=== PATIENT | female | born 1990 | race Caucasian/White ===

== ENCOUNTER 2017-06-18 12:05 | Emergency (ER) | payer SELFPAY ==
[2017-06-18] MEDS ORDERED: Sodium Chloride 0.9% 10 ML Syringe FLUSH PRN (12:12)
[2017-06-18] MEDS ORDERED: Ondansetron 4 MG/2 ML SDV IVPUSH ONE (12:13)
[2017-06-18] MEDS: Sodium Chloride 0.9% 1,000 ML IV ONE ×2 (12:22→13:56)
--- NOTE | 2017-06-18 12:24 | EDM.PDOC ---
ED HPI GENERAL MEDICAL PROBLEM - General Chief Complaint: Head Injury Stated Complaint: HEAD PAIN Time Seen by Provider: 06/18/17 12:06 Source of Information: Reports: Patient, Family, RN, RN Notes Reviewed History Limitations: Reports: No Limitations - History of Present Illness INITIAL COMMENTS - FREE TEXT/NARRATIVE: Patient presents to the emergency room at [place] complaining of a head injury that occurred sometime last evening. The patient does not remember what time the injury occurred. The patient does not remember the fall. The patient states that she didn't lose consciousness but does not know how long. This was an unwitnessed fall. According to the patient's friends, the patient apparently slipped and fell walking down steps, falling backward and hitting her head on the posterior right occipital region. The patient landed on solid concrete. The patient states she feels drowsy. The patient did consume alcohol last evening. The patient complains of nausea but no vomiting. The patient states that she has noticed blood in her right ear canal. The patient denies any visual field disturbances. The patient states that she is light sensitive since the injury. The patient has some left-sided neck pain. The patient denies any other painful areas. No low back pain. The patient denies any trouble with urination or bowel movements. The patient denies any numbness tingling or paresthesia in any extremity. Onset Date: 06/17/17 Duration: Getting Worse Location: Reports: Head Quality: Reports: Throbbing Severity: Moderate Improves with: Reports: None Worsens with: Reports: Movement Context: Reports: Trauma Associated Symptoms: Reports: Nausea/Vomiting Treatments DESIGNER ARCHITECT: Reports: Other (see below) (None) Head Pain Score (Numeric/FACES): 4 - Related Data Allergies Allergy/AdvReac Type Severity Reaction Status Date / Time No Known Allergies Allergy Verified 06/18/17 12:45 Home Meds: Home Meds . [No Known Home Meds] 06/18/17 [History] ED ROS GENERAL - Review of Systems Review Of Systems: See Below Constitutional: Denies: Fever, Chills, Weakness HEENT: Reports: Ear Discharge, Ear Pain. Denies: Vision Change Respiratory: Denies: Shortness of Breath, Cough Cardiovascular: Denies: Chest Pain, Palpitations GI/Abdominal: Reports: Nausea. Denies: Abdominal Pain, Vomiting Musculoskeletal: Reports: Neck Pain, Muscle Pain Skin: Reports: No Symptoms Neurological: Reports: Dizziness, Headache. Denies: Numbness, Paresthesia, Tingling ED EXAM, HEAD INJURY - Physical Exam Exam: See Below Exam Limited By: No Limitations General Appearance: Alert, No Apparent Distress, Thin Head: Scalp Abrasions (Right Occipital), Scalp Tenderness Nexus Criteria: Altered Level of Consciousness. No: Posterior, Midline Cervical Tenderness, Focal Neurological Deficit Eyes: Bilateral Eye: EOMI, Normal Inspection, PERRL Ears: Normal TMs, Auricular Tenderness, Canal Blood Nose: Normal Inspection, Normal Mucousa, No Blood Throat/Mouth: Normal Inspection, Normal Oropharynx, No Airway Compromise Neck: Full Range of Motion, Paraspinous Muscle Tender Respiratory: No Respiratory Distress, Lungs Clear, Normal Breath Sounds Cardiovascular: Regular Rate, Rhythm Extremities: Normal Inspection, Normal Range of Motion Neurologic: Alert, Oriented x 3 Skin: Normal Color, Warm/Dry - Chuck Coma Score Best Eye Response ([place]): (4) Open Spontaneously Best Verbal Response ([place]): (5) Oriented Best Motor Response (Chuck): (6) Obeys Commands Chuck Total: 15 Course - Vital Signs Last Recorded V/S: Last Vital Signs Temp 35.2 C 06/18/17 12:45 Pulse 64 06/18/17 12:45 Resp 24 H 06/18/17 12:45 BP 131/80 06/18/17 12:45 Pulse Ox 96 06/18/17 12:45 - Orders/Labs/Meds Orders: Active Orders 24 hr Category Date Time Status Cervical Spine wo Cont [CT] Stat Exams 06/18/17 12:11 Taken Head wo Cont [CT] Stat Exams 06/18/17 12:11 Taken CARBOXY-THC BY GC/MS Stat Lab 06/18/17 13:00 Received Sodium Chloride 0.9% [Saline Flush] Med 06/18/17 12:12 Active 10 ml FLUSH ASDIRECTED PRN Peripheral IV Insertion Adult [OM.PC] Routine Oth 06/18/17 12:12 Ordered Medication Orders Sodium Chloride (Saline Flush) 10 ml FLUSH ASDIRECTED PRN PRN Reason: Keep Vein Open Labs: Laboratory Tests 06/18/17 06/18/17 06/18/17 Range/Units 12:29 12:29 13:00 WBC 16.5 H (4.0-10.0) x10^3/uL RBC 4.30 (4.00-5.50) x10^6/uL Hgb 14.7 (12.0-16.0) g/dL Hct 41.9 (33.0-47.0) % MCV 97.4 H (78.0-93.0) fL MCH 34.2 H (26.0-32.0) pg MCHC 35.1 (32.0-36.0) g/dL RDW Coeff of Abbi 11.5 (10.0-15.0) % Plt Count 328 (130-400) x10^3/uL Neut % (Auto) 88.9 H (50.0-80.0) % Lymph % (Auto) 5.8 L (25.0-50.0) % [place] % (Auto) 5.2 (2.0-11.0) % Eos % (Auto) 0.0 (0.0-4.0) % Baso % (Auto) 0.1 L (0.2-1.2) % Sodium 141 (136-145) mmol/L Potassium 3.6 (3.5-5.1) mmol/L Chloride 104 (98-107) mmol/L Carbon Dioxide 26 (21-32) mmol/L BUN 6 L (7-18) mg/dL Creatinine 0.8 (0.55-1.02) mg/dL Est Cr Clr Drug Dosing TNP Estimated GFR (MDRD) > 60 Glucose 120 H (74-106) mg/dL Calcium 8.8 (8.5-10.1) mg/dL Creatine Kinase 148 (26-192) U/L Urine Color (YELLOW) Urine Appearance (CLEAR) Urine pH (5.0-8.0) Ur Specific Wolf Urine Protein (NEGATIVE) mg/dL Urine Glucose (UA) (NEGATIVE) mg/dL Urine Ketones (NEGATIVE) mg/dL Urine Occult Blood (NEGATIVE) Urine Nitrite (NEGATIVE) Urine Bilirubin (NEGATIVE) Urine Urobilinogen (0.2) EU/dL Ur Leukocyte Esterase (NEGATIVE) Urine RBC (NOT SEEN) /HPF Urine WBC (NOT SEEN) /HPF Ur Squamous Epith Cells (NEGATIVE) /HPF Urine Bacteria (NEGATIVE) /HPF Urine Mucus (NEGATIVE) /LPF Urine Opiates Screen Negative (NEGATIVE) Ur Buprenorphine Scrn Negative (NEGATIVE) Ur Oxycodone Screen Negative (NEGATIVE) Urine Methadone Screen Negative (NEGATIVE) Ur Barbiturates Screen Negative (NEGATIVE) Ur Tricyclics Screen Negative (NEGATIVE) Ur Amphetamine Screen Negative (NEGATIVE) U Methamphetamines Scrn Negative (NEGATIVE) Urine MDMA Screen Negative (NEGATIVE) U Benzodiazepines Scrn Negative (NEGATIVE) U Cocaine Metab Screen Negative (NEGATIVE) U Marijuana (THC) Screen Positive H (NEGATIVE) Ethyl Alcohol 62 H (0-3) mg/dL 06/18/17 Range/Units 13:00 WBC (4.0-10.0) x10^3/uL RBC (4.00-5.50) x10^6/uL Hgb (12.0-16.0) g/dL Hct (33.0-47.0) % MCV (78.0-93.0) fL MCH (26.0-32.0) pg MCHC (32.0-36.0) g/dL RDW Coeff of Abbi (10.0-15.0) % Plt Count (130-400) x10^3/uL Neut % (Auto) (50.0-80.0) % Lymph % (Auto) (25.0-50.0) % [place] % (Auto) (2.0-11.0) % Eos % (Auto) (0.0-4.0) % Baso % (Auto) (0.2-1.2) % Sodium (136-145) mmol/L Potassium (3.5-5.1) mmol/L Chloride (98-107) mmol/L Carbon Dioxide (21-32) mmol/L BUN (7-18) mg/dL Creatinine (0.55-1.02) mg/dL Est Cr Clr Drug Dosing Estimated GFR (MDRD) Glucose (74-106) mg/dL Calcium (8.5-10.1) mg/dL Creatine Kinase (26-192) U/L Urine Color Yellow (YELLOW) Urine Appearance Cloudy H (CLEAR) Urine pH 6.0 (5.0-8.0) Ur Specific Wolf 1.020 Urine Protein Negative (NEGATIVE) mg/dL Urine Glucose (UA) Negative (NEGATIVE) mg/dL Urine Ketones Negative (NEGATIVE) mg/dL Urine Occult Blood Negative (NEGATIVE) Urine Nitrite Negative (NEGATIVE) Urine Bilirubin Negative (NEGATIVE) Urine Urobilinogen 0.2 (0.2) EU/dL Ur Leukocyte Esterase Negative (NEGATIVE) Urine RBC 0-5 (NOT SEEN) /HPF Urine WBC 0-5 (NOT SEEN) /HPF Ur Squamous Epith Cells Moderate H (NEGATIVE) /HPF Urine Bacteria Not seen (NEGATIVE) /HPF Urine Mucus Not seen (NEGATIVE) /LPF Urine Opiates Screen (NEGATIVE) Ur Buprenorphine Scrn (NEGATIVE) Ur Oxycodone Screen (NEGATIVE) Urine Methadone Screen (NEGATIVE) Ur Barbiturates Screen (NEGATIVE) Ur Tricyclics Screen (NEGATIVE) Ur Amphetamine Screen (NEGATIVE) U Methamphetamines Scrn (NEGATIVE) Urine MDMA Screen (NEGATIVE) U Benzodiazepines Scrn (NEGATIVE) U Cocaine Metab Screen (NEGATIVE) U Marijuana (THC) Screen (NEGATIVE) Ethyl Alcohol (0-3) mg/dL Meds: Medications Generic Name Dose Route Start Last Admin Trade Name Freq PRN Reason Stop Dose Admin Sodium Chloride 10 ml 06/18/17 12:12 Saline Flush FLUSH ASDIRECTED PRN Keep Vein Open Discontinued Medications Generic Name Dose Route Start Last Admin Trade Name Freq PRN Reason Stop Dose Admin Sodium Chloride 1,000 mls @ 999 mls/hr 06/18/17 12:13 06/18/17 12:22 Normal Saline IV 06/18/17 13:13 999 mls/hr ONETIME ONE Administration Ondansetron HCl 4 mg 06/18/17 12:13 06/18/17 12:22 Zofran IVPUSH 06/18/17 12:14 4 mg ONETIME ONE Administration - Radiology Interpretation Free Text/Narrative:: CT C-Spine: No evidence of acute fracture or subluxation CT Head: Acute left tentorium subdural hemorrhage measuring approximately 2mm. Fracture of the right temporal bone involving the mastoid air cells and the right temporomandibular joint. CT Results Date: 06/18/17 CT Results Time: 13:25 Departure - Departure Time of Disposition: 13:53 Disposition: DC/Tfer to Acute Hospital 02 Condition: Fair Clinical Impression: Subdural bleeding, Fracture involving temporomandibular joint Fracture of temporal bone Qualifiers: Encounter type: initial encounter Fracture type: closed Qualified Code(s): S02.19XA - Other fracture of base of skull, initial encounter for closed fracture - Discharge Information Forms: Interfacility Transfer EMTALA ED Communication - ED Communication Date/Time Date: 06/18/17 Time Called: 13:50 - Discussed Case With (1) Discussed Case With (1): Admitting Provider (Dr. Feng Barraza) - Conversation Summary Admitting Provider Agreed to Patient's Admission: Yes Patient Aware of Amendments fo Care Plan: Yes - Problem List Review Problem List Initiated/Reviewed/Updated: Yes - My Orders Last 24 Hours: My Active Orders 06/18/17 12:11 Cervical Spine wo Cont [CT] Stat Head wo Cont [CT] Stat 06/18/17 12:12 Sodium Chloride 0.9% [Saline Flush] 10 ml FLUSH ASDIRECTED PRN Peripheral IV Insertion Adult [OM.PC] Routine 06/18/17 13:00 CARBOXY-THC BY GC/MS Stat - Assessment/Plan Last 24 Hours: My Active Orders 06/18/17 12:11 Cervical Spine wo Cont [CT] Stat Head wo Cont [CT] Stat 06/18/17 12:12 Sodium Chloride 0.9% [Saline Flush] 10 ml FLUSH ASDIRECTED PRN Peripheral IV Insertion Adult [OM.PC] Routine 06/18/17 13:00 CARBOXY-THC BY GC/MS Stat Plan: Patient will be transferred to [facility]. Dr. Feng Barraza accepting provider. Report given. All questions answered. Patient aware and agrees with transfer to [facility].
[2017-06-18 13:02] LABS: CHLORIDE,CL 104 mmol/L (98-107); SODIUM,NA 141 mmol/L (136-145)
[2017-06-18 13:03] VITALS: BP 131/80
== END 2017-06-18 14:10 | disposition short-term general hospital (02) ==
LOC: VM.ED 12:05
DX: S06.5X0A Traumatic subdural hemorrhage without loss of consciousness, initial encounter (principal); S02.19XA Other fracture of base of skull, initial encounter for closed fracture; S02.69XA Fracture of mandible of other specified site, initial encounter for closed fracture; W10.9XXA Fall (on) (from) unspecified stairs and steps, initial encounter
CPT/HCPCS: 36415; 70450; 72125; 80048; 80305; 80349; 81001; 82550; 85025; 96361; 96374; 99285; G0480; J2405; J7030; 99284-GF

== ENCOUNTER 2022-06-24 23:29 | Emergency (ER) | payer MEDICAID ==
[2022-06-24] MEDS ORDERED: Sodium Chloride 0.9% 1,000 ML IV ONE (23:48)
[2022-06-24] MEDS ORDERED: Ondansetron 4 MG/2 ML SDV IVPUSH ONE (23:48)
[2022-06-24] MEDS ORDERED: Sodium Chloride 0.9% 10 ML Syringe FLUSH PRN (23:48)
[2022-06-24] MEDS ORDERED: Take Home: Ondansetron 4 MG Tab.DIS, 5 Tab Pack PO ONE (23:54)
[2022-06-25 00:07] VITALS: BP 119/63; PULSE 66
== END 2022-06-25 00:53 | disposition home or self-care (01) ==
LOC: VM.ED 23:29
DX: O21.9 Vomiting of pregnancy, unspecified (principal); Z3A.00 Weeks of gestation of pregnancy not specified
CPT/HCPCS: 96361; 96374; 99283; 99283-25; J2405; J7030; Q0162